=== PATIENT | male | born 2000 | race Caucasian/White ===

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

== ENCOUNTER 2022-04-26 21:08 | Emergency (ER) | payer OTHER ==
[~2022-04-26] VITALS: Ht 185.4 cm; Wt 145.1 kg
--- NOTE | 2022-04-26 22:05 | NUR ---
TO ER BED 2. BIBS. L SIDE CHEST PAIN NON RADIATING X 1 WEEK SHARP AGGREVATED BY MOVING. PT IS ALERT AND ORIENTED. AMBULATORY WITH STEADY GAIT. CONNECTED TO MONITOR. AWAITING MD ORDERS
--- NOTE | 2022-04-26 22:27 | NUR ---
Broderick stokes in [facility] - 04/26/22 at 2228 by [facility] AT BEDSIDE
[2022-04-26] MEDS ORDERED: IBUPROFEN 400 MG TABLET ONE (22:37)
[2022-04-26] MEDS ORDERED: IBUPROFEN 400 MG TABLET PO ONE (23:00)
[2022-04-26 23:18] VITALS: BP 151/66
--- NOTE | 2022-04-26 23:40 | NUR ---
Patient discharged to home in stable condition. Written and verbal after care instructions given. Patient verbalizes understanding of instruction.
== END 2022-04-26 23:41 | disposition home or self-care (01) ==
LOC: ER 21:20
DX: R07.89 Other chest pain (principal); J45.909 Unspecified asthma, uncomplicated
CPT/HCPCS: 71045-TC